=== PATIENT | male | born 1990 | race Caucasian/White ===

== ENCOUNTER 2018-09-16 20:59 | Emergency (ER) | payer BC, OTHER ==
[2018-09-16] MEDS ORDERED: Dexamethasone 4 mg/ml Vial ONE (21:39)
[2018-09-16] MEDS ORDERED: Ketorolac Tromethamine 30 MG/ML VIAL ONE (21:39)
[2018-09-16] MEDS ORDERED: Diazepam 5 MG TAB ONE (22:26)
--- NOTE | 2018-09-16 23:24 | CT ---
CT LUMBAR SPINE NONCONTRAST: History: Low back injury. FINDINGS: Vertebral body height and alignment are maintained. No acute fracture or dislocation. Right posterolateral disc protrusion at the L4-5 level compresses the right ventral aspect of the the boom sac and origin of the right L5 nerve root. IMPRESSION: 1. No acute osseous abnormalities are demonstrated. 2. Right posterolateral disc protrusion at the L4-5 level compressing the thecal sac and right L5 ner ve root origin. POS: [facility]
[2018-09-17] MEDS ORDERED: Ondansetron ODT 4 MG TAB ONE (00:16)
[2018-09-17] MEDS ORDERED: Morphine 4 MG/ML VIAL ONE (00:26)
== END 2018-09-17 00:36 | disposition home or self-care (01) ==
LOC: ERS 20:59
DX: M54.41 Lumbago with sciatica, right side (principal); F90.9 Attention-deficit hyperactivity disorder, unspecified type; Z79.899 Other long term (current) drug therapy
CPT/HCPCS: 72131; 96372; J1100; J1885; J2270; Q0162

== ENCOUNTER 2018-10-23 01:14 | Outpatient (CLI) | payer BC ==
[2018-10-23 09:34] LABS: Hemoglobin 15.6 g/dL (14.0-18.0); Mean Corpuscular HGB CONC 34.7 g/dL (32.0-36.0); Mean Corpuscular Hemoglobin 31.6 pg (27.0-31.0); Mean Corpuscular Volume 91.2 fL (78.0-98.0); Mean Platelet Volume 6.5 fL (7.4-10.4); Platelet Count 278 thou/uL (130-400); Red Blood Cell (RBC) Count 4.94 mill/uL (4.70-6.10); White Blood Cell (WBC) Count 7.2 thou/uL (4.8-10.8)
[2018-10-23 09:46] LABS: Anion Gap 12 mmol/L (10-20); BUN (Urea Nitrogen) 8 mg/dL (8.9-20.6); Calc. Creatinine Clearance 0 mL/min (70-130); Calcium 9.8 mg/dL (7.8-10.44); Carbon Dioxide 26 mmol/L (22-29); Chloride 104 mmol/L (98-107); Estimated GFR-MDRD Greater than 90; Glucose 91 mg/dL (70-105); Potassium 4.3 mmol/L (3.5-5.1); Sodium 138 mmol/L (136-145)
--- NOTE | 2018-10-23 16:25 | EKG ---
Test Reason : Blood Pressure : / mmHG Vent. Rate : 113 BPM Atrial Rate : 113 BPM P-R Int : 134 ms QRS Dur : 080 ms QT Int : 324 ms P-R-T Axes : 072 080 026 degrees QTc Int : 444 ms Sinus tachycardia Nonspecific ST and T wave abnormality Abnormal ECG Confirmed by LYNDSEY WILDE ([id number]) on 10/23/2018 4:25:31 PM Referred By: Denzel CARRION Confirmed By:LYNDSEY WILDE
== END 2018-10-23 01:15 | disposition home or self-care (01) ==
LOC: LABBT 01:14
PROVIDERS: ATTEND Neurological Surgery
DX: Z01.818 Encounter for other preprocedural examination (principal); M54.16 Radiculopathy, lumbar region
CPT/HCPCS: 80048; 85027; 93005; 93010

== ENCOUNTER 2018-10-24 06:26 | Day surgery (SDC) | payer BC ==
[2018-10-23 08:32] VITALS: BMI 26.2
[2018-10-24] MEDS ORDERED: Midazolam HCl 2 mg/2 ml Vial ONE (08:31)
[2018-10-24] MEDS ORDERED: Fentanyl 250 MCG/5 ML VIAL ONE (08:50)
[2018-10-24] MEDS ORDERED: Albuterol Sulfate HFA (OR ONLY) ONE (10:17)
[2018-10-24] MEDS ORDERED: Fentanyl 100 MCG/2 ML VIAL ONE (10:51)
--- NOTE | 2018-10-24 11:31 | OP ---
DATE OF PROCEDURE: 10/24/2018 SERGEANT OF OFFICERS: Teagan Morrow PA-C PROCEDURE PERFORMED: Right L4-L5 microdiskectomy. DESCRIPTION OF PROCEDURE: The patient was brought to the operating room and intubated. He was rolled in the prone position on gel-filled chest rolls. An incision was made exposing L4-L5 on the right and the level was confirmed by x-ray. We performed a right L4-L5 hemilaminectomy, removed the ligament, identified the right L5 nerve root and beneath this was a bulging disk herniation. This was incised and debrided in multiple fragments. A complete decompression of right L5 was achieved. The wound was then extensively irrigated and maximum hemostasis was secured and the wound was closed in anatomic layers. Job ID: [id number]
[2018-10-24] MEDS ORDERED: Dexamethasone 20 MG/5 ML VIAL ONE (13:40)
[2018-10-24] MEDS ORDERED: Lidocaine 1% PF 5 ML VIAL ONE (13:40)
[2018-10-24] MEDS ORDERED: Ondansetron PF 4 MG/2 ML Vial ONE (13:40)
[2018-10-24] MEDS ORDERED: Rocuronium Bromide 10 MG/ML (10ML VIAL) ONE (13:40)
[2018-10-24] MEDS ORDERED: Glycopyrrolate 0.2 MG/ML 5 ML SYRINGE ONE (13:40)
[2018-10-24] MEDS ORDERED: PROPOFOL 200 MG/20 ML VIAL ONE (13:40)
[2018-10-24] MEDS ORDERED: Ketorolac Tromethamine 30 MG/ML VIAL ONE (13:40)
== END 2018-10-24 12:42 | disposition home or self-care (01) ==
LOC: SDC 06:26
PROVIDERS: ATTEND Neurological Surgery
PROC: 0SB20ZZ Excision of Lumbar Vertebral Disc, Open Approach (ICD-10-PCS; principal; 2018-10-24)
PROC: 01NB0ZZ Release Lumbar Nerve, Open Approach (ICD-10-PCS; principal; 2018-10-24)
DX: M51.16 Intervertebral disc disorders with radiculopathy, lumbar region (principal); G43.909 Migraine, unspecified, not intractable, without status migrainosus; Z79.891 Long term (current) use of opiate analgesic; Z79.899 Other long term (current) drug therapy
CPT/HCPCS: 76000; J0131; J1100; J1885; J2001; J2250; J2405; J2704; J3010; J3370